=== PATIENT | female | born 1975 | race Caucasian/White ===

== ENCOUNTER 2017-05-30 23:43 | Emergency (ER) | payer OTHER ==
[2017-05-30] MEDS ORDERED: IPRATROPIUM/ALBUTEROL 3 ML DEYVIAL IH ONE (23:59)
[2017-05-31] MEDS ORDERED: predniSONE 20 MG TAB PO ONE (00:36)
[2017-05-31] MEDS ORDERED: ALBUTEROL INH PREPACK MDI TAKEHOME ONE (00:37)
--- NOTE | 2017-05-31 00:40 | EDPHY ---
H & P Stated Complaint: Cough, SOB HPI/ROS: Chief complaint: Trouble breathing History of present illness: This is a 41-year-old female who presents to the emergency department for evaluation of trouble breathing. Patient reports the onset of symptoms over the last week. Symptoms have slowly worsened. She has had an associated cough. She denies precipitating factors. She denies alleviating factors. She denies other associated signs or symptoms including no fevers, no sore throat, no chest pain, no pain or swelling in the legs, no rash. She reports a history of asthma in the past and bronchitis, this feels similar to past episodes of bronchitis. Review of systems: A 10 point review of systems was obtained and other than described above LEs negative - Personal History LMP (Females 10-55): 8-14 Days Ago Current Tetanus/Diphtheria Vaccine: Unsure Current Tetanus Diphtheria and Acellular Pertussis (TDAP): Unsure Tetanus Vaccine Date: < 10 YEAR - Medical/Surgical History Hx Asthma: No Hx Chronic Respiratory Disease: No Hx Diabetes: No Hx Cardiac Disease: No Hx Renal Disease: No Other PMH: Denies - Social History Smoking Status: Never smoked - Physical Exam Exam: General Appearance: Alert, nontoxic Eyes: Pupils equal and round no injection. ENT: Right tympanic membrane, external auditory canal, externally and surrounding soft tissue unremarkable. 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 Respiratory: No use of accessory muscles or other evidence of respiratory distress. Patient speaking in full sentences. There are no rales or rhonchi on auscultation. There is a diffuse expiratory wheezing. Cardiac: regular rate and rhythm. Musculoskeletal: Neck is supple and nontender. Extremities have full range of motion and are nontender. No evidence of DVT on evaluation of the lower extremities. Skin: No rashes or lesions. Neurological: Alert oriented x4. Strength and sensation intact and symmetrical. Ambulating without difficulty. Constitutional: Initial Vital Signs Temperature (C) 36.5 C 05/30/17 23:44 Heart Rate 63 05/30/17 23:44 Respiratory Rate 20 05/30/17 23:44 Blood Pressure 130/61 H 05/30/17 23:44 O2 Sat (%) 99 05/30/17 23:44 O2 Delivery Mode Room Air Allergies/Adverse Reactions: aspirin [Aspirin] Allergy (Severe, Verified 07/13/15 15:57) Anaphylaxis Home Medications: Medication Instructions Recorded predniSONE 40 mg PO DAILY 2 Days 05/31/17 Medical Decision Making - Diagnostics Imaging: I viewed and interpreted images myself ED Course/Re-evaluation: Patient is discussed with my secondary supervising physician Dr. Jey Frankel. Patient presents the emergency department with trouble breathing and cough. On evaluation she is nontoxic. Afebrile and vital signs are stable. She does report history of asthma and bronchitis sane this feels similar. Physical exam does reveal some wheezing. Chest x-ray is obtained and consistent with bronchitis, no focal infiltrates noted. I do not believe antibiotics are warranted at this time. Patient is a given a DuoNeb and states she feels much better and has improvement in lung sounds. I believe she is appropriate for discharge home. She will be discharged with an albuterol inhaler with spacer and a short course of steroid. She is to follow up with her primary care doctor for recheck. Return precautions are given. Patient voiced understanding and agreement with plan. Differential Diagnosis: Include but not limited to reactive airway disease, bronchitis, pneumonia, unlikely pulmonary embolism as patient is perc negative - Data Points Medications Given: Discontinued Medications Albuterol/Ipratropium (Duoneb) 3 ml IH EDNOW ONE Stop: 05/31/17 00:00 Last Admin: 05/31/17 00:02 Dose: 3 ml Departure - Departure Disposition: Home, Routine, Self-Care Clinical Impression: Acute bronchitis Qualifiers: Bronchitis organism: unspecified organism Qualified Code(s): J20.9 - Acute bronchitis, unspecified Condition: Good Instructions: Acute Bronchitis (ED) Additional Instructions: Follow-up with your primary care doctor for recheck If symptoms worsen or new symptoms develop return to the emergency room for recheck Referrals: Emily Poe MD [Primary Care Provider] - As per Instructions Prescriptions: predniSONE 40 mg PO DAILY 2 Days
[2017-05-31 00:50] VITALS: BP 133/74; PULSE 74; RESP 16; TEMP 97.9; O2SAT 96
== END 2017-05-31 00:48 | disposition home or self-care (01) ==
DX: J20.9 Acute bronchitis, unspecified (principal)

== ENCOUNTER → 2017-12-29 | Outpatient (CLI) | payer OTHER | LOC: FIMAGING 13:12 | PROVIDERS: ATTEND Family Medicine | DX: N60.01 Solitary cyst of right breast (principal) ==

== ENCOUNTER → 2018-08-31 | Outpatient (CLI) | payer OTHER | LOC: FIMAGING 14:17 | PROVIDERS: ATTEND Family Medicine | DX: Z12.31 Encounter for screening mammogram for malignant neoplasm of breast (principal) ==

== ENCOUNTER 2019-01-25 05:55 | Emergency (ER) | payer OTHER ==
[2019-01-25 06:01] VITALS: BP 103/53
[2019-01-25] MEDS ORDERED: ONDANSETRON DISINTEGRATING 4 MG TAB ONE (06:09)
[2019-01-25] MEDS ORDERED: ONDANSETRON DISINTEGRATING 4 MG TAB PO ONE (06:10)
--- NOTE | 2019-01-25 06:15 | EDPHY ---
H & P Stated Complaint: DIARRHEA AND VOMITING SINCE FRIDAY Time Seen by Provider: 01/25/19 06:09 HPI/ROS: Chief Complaint: Abdominal pain, nausea, vomiting, diarrhea HPI: 43-year-old woman with no significant medical problems woke this morning with upper abdominal pain. Had some nausea, vomited and had diarrhea. She did state that she had a little bit of a normal stomach ache 3 days ago but that resolved and she has otherwise felt well. Does not have a history of similar symptoms such as this. She says now after vomiting the pain has gone away. She is has some mild nausea at this point. No fevers or chills. No cough. No blood in her vomit or coffee-grounds. No dark tarry stools or blood in her stool. Pain was in her central upper abdomen. It is since resolved. At worst the pain was a 7/10. ROS: 10 systems were reviewed and were negative except those elements noted in the HPI. PMH: Denies Social History: No smoking, no alcohol, no recreational drug use Family History: non-contributory Physical Exam: Gen: Awake, Alert, No Distress HEENT: Nose: no rhinorrhea Eyes: PERRLA, EOMI Mouth: Moist mucosa Neck: Supple, no JVD Chest: nontender, lungs clear to auscultation Heart: S1, S2 normal, no murmur Abd: Soft, very mild epigastric tenderness, no right upper quadrant tenderness, no lower abdominal tenderness, no guarding Back: no CVA tenderness, no midline tenderness Ext: no edema, non-tender Skin: no rash Neuro: CN II-XII intact, Sensation grossly intact, Strength 5/5 in bilateral upper and lower extremities - Personal History LMP (Females 10-55): Now Current Tetanus Diphtheria and Acellular Pertussis (TDAP): Yes Tetanus Vaccine Date: < 10 YEAR - Medical/Surgical History Hx Asthma: No Hx Chronic Respiratory Disease: No Hx Diabetes: No Hx Cardiac Disease: No Hx Renal Disease: No Hx Cirrhosis: No Hx Alcoholism: No Hx HIV/AIDS: No Hx Splenectomy or Spleen Trauma: No Other PMH: Denies - Social History Smoking Status: Never smoked Constitutional: Initial Vital Signs Temperature (C) 36.8 C 01/25/19 05:57 Heart Rate 71 01/25/19 05:57 Respiratory Rate 16 04/08/19 05:57 Blood Pressure 103/53 L 01/25/19 05:57 O2 Sat (%) 97 01/25/19 05:57 O2 Delivery Mode Room Air Allergies/Adverse Reactions: aspirin [Aspirin] Allergy (Severe, Verified 07/13/15 15:57) Anaphylaxis Home Medications: Medication Instructions Recorded NK [No Known Home Meds] 01/25/19 Medical Decision Making ED Course/Re-evaluation: 43-year-old woman woke this morning with an episode of epigastric pain nausea vomiting and diarrhea. Pain is since resolved. Abdomen is soft and completely benign. She is declining any blood testing or imaging at this time. Will treat her worth a Zofran 0 DT and re-evaluate. Departure - Departure Disposition: Home, Routine, Self-Care Clinical Impression: Abdominal pain, Nausea vomiting and diarrhea Condition: Good Instructions: Acute Nausea and Vomiting (ED), Acute Diarrhea (ED), Ondansetron (By mouth) Additional Instructions: You may take Zofran every 8 hr as needed for nausea vomiting. Follow up with primary care physician in 2-3 days if symptoms are not improving. Return to the emergency department for increasing abdominal pain, nausea, vomiting, diarrhea, fever, or any other concerns. Referrals: [facility],. [Clinic] - As per Instructions
[2019-01-25] MEDS ORDERED: ONDANSETRON 4MG PREPACK#2 BTL TAKEHOME ONE (06:17)
== END 2019-01-25 06:52 | disposition home or self-care (01) ==
DX: R10.10 Upper abdominal pain, unspecified (principal); R11.2 Nausea with vomiting, unspecified; R19.7 Diarrhea, unspecified